=== PATIENT | male | born 1970 | race Caucasian/White ===

== ENCOUNTER 2020-06-22 15:42 | Emergency (ER) | payer SELFPAY ==
[~2020-06-22] VITALS: Ht 172.7 cm; Wt 81.8 kg
[2020-06-22 15:45] VITALS: BP 235/126
--- NOTE | 2020-06-22 16:05 | ED Head Injury ---
General Chief Complaint: Laceration Stated Complaint: FELL,HEAD LAC Source: patient History of Present Illness Date Seen by Provider: Jun 22, 2020 Time Seen by Provider: 15:45 Initial Comments Patient is a 50-year-old male who presents with head injury after accidentally falling falling while walking to work this afternoon. Patient has a were centimeter gaping laceration over his left parietal scalp. Bleeding is controlled. Reports headache. Patient's blood pressure noted. Elevated 2 over 130s. Patient states that he doesn't have history of blood pressure despite doctors trying to treat him for hypertension in the past he states this on pressure is related to pain. No nausea vomiting. Patient is not on anticoagulation therapy. No other acute symptoms or complaints. Occurred: just prior to arrival Severity: moderate Location: parietal Method of Injury: fell Loss of Consciousness: no loss of consciousness Associated Systoms: Denies Symptoms Allergies and Home Medications Allergies Uncoded Allergies: Mushrooms (Adverse Reaction, Unknown, 06/22/20) Home Medications No Active Prescriptions or Reported Meds Patient Home Medication List Home Medication List Reviewed: Yes Review of Systems Review of Systems Constitutional: see HPI Ears, Nose, Mouth, Throat: see HPI Respiratory: see HPI Cardiovascular: see HPI Gastrointestinal: see HPI Genitourinary: see HPI Musculoskeletal: see HPI Skin: see HPI Past Dkjkuiw-Kbnpjp-Dleceg Hx Past Med/Social Hx: Reviewed Nursing Past Med/Soc Hx Patient Social History Recent Foreign Travel: No Contact w/Someone Who Travel: No Physical Exam Vital Signs Capillary Refill : Less Than 3 Seconds Height, Weight, BMI Height: '" Weight: lbs. oz. kg; BMI Method: General Appearance: WD/WN, no apparent distress HEENT: PERRL/EOMI, TMs normal, pharynx normal, other Neck: non-tender, full range of motion, normal inspection Cardiovascular: normal peripheral pulses, regular rate, rhythm Respiratory: lungs clear Gastrointestinal: soft Psychiatric: alert, oriented x 3 Crainal Nerves: normal hearing, normal speech, PERRL Coordination/Gait: normal gait Motor/Sensory: no motor deficit, no sensory deficit Skin: other (4 cm linear left parietal laceration, wound clean. Bleeding controlled. No hematoma) Procedures/Interventions Wound Location: Scalp Other Wound Location Left parietal scalp Wound's Depth, Shape: superficial Wound Explored: clean Betadine Prep?: No Staple Repair: Stapler 35W (5) Sterile Dressing Applied?: Yes Departure Communication (Admissions) Wound cleansed and closed. Typical wound care instructions provided. Patient declines workup for hypertension. He understands he is at risk for stroke, NM, intracranial hemorrhage. Is instructed to follow up with his PCP Verbalizes understanding discharge instructions prior to departure. Impression Primary Impression: Scalp injury Disposition: HOME, SELF-CARE Condition: Stable Departure-Patient Inst. Patient Instructions: Closed Head Injury, Laceration Repair With Edgar (DC) Add. Discharge Instructions: Please keep wound clean and dry and covered. Apply topical antibiotics 3 times daily and take tramadol as needed for pain. Return to the ED in 10 days for staple removal. Follow-up with local PCP in 2-3 days for reevaluation of blood pressure. All discharge instructions reviewed with patient and/or family. Voiced understanding. Scripts No Active Prescriptions or Reported MedAVRIL Malone DO Jun 22, 2020 16:05
[2020-06-22] MEDS ORDERED: TRM50T PO (16:08)
== END 2020-06-22 16:12 | disposition left against medical advice (07) ==
LOC: ER FS 15:45
DX: S01.01XA Laceration without foreign body of scalp, initial encounter (principal); Z91.018 Allergy to other foods; W18.39XA Other fall on same level, initial encounter; Y92.59 Other trade areas as the place of occurrence of the external cause; Y99.0 Civilian activity done for income or pay